=== PATIENT | female | born 1985 | race American Indian/Alaskan Native ===

== ENCOUNTER 2018-12-18 14:25 | Outpatient (CLI) | payer OTHER ==
[2018-12-18] MEDS ORDERED: PRENATAL 19 TA1 EACH PO (15:00)
== END 2018-12-19 10:10 | disposition home or self-care (01) ==
LOC: OBS/DEL 14:25
DX: E16.1 Other hypoglycemia (principal); O26.892 Other specified pregnancy related conditions, second trimester; Z34.02 Encounter for supervision of normal first pregnancy, second trimester

== ENCOUNTER 2019-04-13 09:30 | Inpatient (IN) | payer OTHER ==
[~2019-04-13] VITALS: Ht 154.9 cm; Wt 75.7 kg
[~2019-04-13 09:30] MED LIST: PRENATAL 19 TA1 EACH PO
== END 2019-04-28 12:10 | disposition home or self-care (01) | DRG 807 ==
LOC: LDR 04-26 02:56 → OB/GYN 04-26 02:56
PROVIDERS: ADMIT Obstetrics & Gynecology
PROC: 10E0XZZ Delivery of Products of Conception, External Approach (ICD-10-PCS; principal; 2019-04-26)
PROC: 4A0HXFZ Measurement of Products of Conception, Cardiac Rhythm, External Approach (ICD-10-PCS; 2019-04-26)
DX: O80 Encounter for full-term uncomplicated delivery (principal); Z37.0 Single live birth; Z3A.39 39 weeks gestation of pregnancy